=== PATIENT | male | born 1940 | race Caucasian/White ===

== ENCOUNTER 2022-03-02 19:23 | Inpatient (IN) | payer MEDICARE, OTHER ==
[~2022-03-02] VITALS: Ht 180.3 cm; Wt 66.7 kg
--- NOTE | 2022-03-02 21:21 | NUR ---
PT placed in A
[2022-03-02 22:10] LABS: HEMATOCRIT 38.5 % (36.7-47.1); MEAN CORPUSCULAR HEMOGLOBIN 30.2 uug (23.8-33.4); PLATELET COUNT (AUTO) 186 K/uL (152-348)
[2022-03-02 22:27] LABS: CARBON DIOXIDE 33 mmol/L (21-32); CHLORIDE 105 mmol/L (98-107); CREATININE 1.1 mg/dL (0.6-1.3); GLUCOSE 102 mg/dL (74-106); POTASSIUM 3.9 mmol/L (3.5-5.1); UREA NITROGEN, BLOOD 19 mg/dL (7-18)
[2022-03-02 22:33] LABS: ALANINE AMINOTRANSFERASE 42 U/L (16-63); ALKALINE PHOSPHATASE 53 U/L (50-136); ASPARTATE AMINOTRANSFERASE 30 U/L (15-37); BILIRUBIN,DIRECT 0.1 mg/dL (0.0-0.2); BILIRUBIN,TOTAL 0.3 mg/dL (0.2-1.0); CREATINE KINASE, TOTAL 312 U/L (39-308); TOTAL PROTEIN, SERUM 7.2 g/dL (6.4-8.2)
[2022-03-02 22:35] LABS: ACETAMINOPHEN < 2.0 ug/mL (10-30)
[2022-03-02 22:45] LABS: ETHANOL < 3 MG/DL (0-0)
--- NOTE | 2022-03-02 23:17 | NUR ---
called Art marker machine attendant for psych eval
[2022-03-03] MEDS ORDERED: OLANZAPINE 10 MG VIAL IM ONE ×3 (00:14→02:15)
--- NOTE | 2022-03-03 00:20 | NUR ---
5mg Zyprexa IM verbal order received from Dr Smith
--- NOTE | 2022-03-03 01:48 | NUR ---
report given to Lana PISANO
[2022-03-03 01:55] LABS: *BILIRUBIN,URIN NEGATIVE (NEGATIVE); *BLOOD, URINE 3+ (NEGATIVE); *CLARITY,URINE CLOUDY (CLEAR); *COLOR,URINE DARK YELLOW (YELLOW); *KETONES,URINE TRACE (NEGATIVE); *UROBILINOGEN,URINE 0.2 E.U./dl (NORMAL); LEUKOCYTE ESTERASE ,URINE 2+ (NEGATIVE); NITRITE, URINE NEGATIVE (NEGATIVE); UGLUCOSE NEGATIVE (NEGATIVE)
[2022-03-03 02:03] LABS: *AMPHETAMINE, URINE NEGATIVE (NEGATIVE); *CANNABINOID, URINE POSITIVE (NEGATIVE); *COCCAINE, URINE NEGATIVE (NEGATIVE); *OPIATE, URINE NEGATIVE (NEGATIVE); *PHENCYCLIDINE SCREEN,URINE NEGATIVE (NEGATIVE)
--- NOTE | 2022-03-03 02:39 | NUR ---
Pt. admitted to [facility]HU , under care of Dr. Goddard Belongs List completed Nickie RN aware of patient's arrival
[2022-03-03] MEDS ORDERED: BLOOD SUGAR DIAGNOSTIC 1 EACH STRIP VI ONE (03:00)
[2022-03-03] MEDS ORDERED: MAGNESIUM HYDROXIDE 30 ML LIQUID UDC PO PRN (03:00)
[2022-03-03] MEDS ORDERED: ACETAMINOPHEN 325 MG TABLET PO PRN (03:00)
[2022-03-03] MEDS ORDERED: MAG HYDROX/AL HYDROX/SIMETH 30 ML LIQUID UDC PO PRN (03:00)
[2022-03-03] MEDS ORDERED: IPRA3AMP23 IH (04:27)
[2022-03-03] MEDS ORDERED: QUET25TA PO (04:27)
[2022-03-03] MEDS ORDERED: DIVA250T PO (04:27)
[2022-03-03] MEDS ORDERED: AMLO5TAB4 PO (04:27)
[2022-03-03] MEDS ORDERED: CLON0.2T PO (04:27)
[2022-03-03] MEDS ORDERED: RISP2TAB5 PO (04:27)
[2022-03-03] MEDS ORDERED: MEMA10TA PO (04:27)
--- NOTE | 2022-03-03 05:43 | NUR ---
ADMITTING NOTE Patient arrived 2:30 via gurney, brought in by Audrey ANDINO. Placed on a 5150 for Danger to others, and Thought disorder. [facility]'s senior living called for an evaluation for increased agitation, patient according to the hold became combative towards staff and residents. On arrival patient appeared alert, oriented to name only. Patient unable to provide information. Sami speaking primarily, unable to assess, or obtain coherent conversation, or cooperation. Orders received and carried out. Care of Plan in place, will monitor for safety.
[2022-03-03 07:30] VITALS: BP 133/67
--- NOTE | 2022-03-03 09:36 | NUR ---
GPS: PT ON CHAIR FOR SAFETY. CALLED [facility] FOR COVID VACCINE INFORMATION. PT HAVE 2 COVID VACCINES WITH PFIEZER, 1ST- 10/10/20 AND 2ND- 10/31/20. PNA VACCINE - 01/2019 AND FLU VACCINE- 2019.
[2022-03-03] MEDS: DIVALPROEX SPRINKLE 125 MG CAP.SPRINK PO SCH ×2 (09:58→17:14)
--- NOTE | 2022-03-03 10:00 | NUR ---
GPS: RECEIVED PT ON BED ASLEEP. AFTER BREAKFAST, PT WAS TRANSFERRED TO CHAIR FOR SAFETY AFTER PHYSICAL THERAPY EVALUATION. PT UNSTEADY WITH ASSIST ON AMBULATION WITH WALKER. PT COMPLIANT WITH CARE AND MEDS. UNABLE TO MAKE MEANINGFUL CONVERSATION PT SLEEPING, ALERT ONLY TO NAME. DENIES PAIN OR DISCOMFORT. NO AGITATION NOTED AT THIS TIME.
[2022-03-03] MEDS ORDERED: ALBUTEROL SULFATE 8 GM HFA.AER.AD IH PRN (10:15)
[2022-03-03] MEDS ORDERED: ALBUTEROL SULFATE 2.5 MG/3 ML NEBU NEB PRN (10:15)
[2022-03-03] MEDS ORDERED: CLONIDINE HCL 0.2 MG TABLET PO PRN (10:15)
[2022-03-03 10:31] LABS: BILIRUBIN,TOTAL 0.4 mg/dL (0.2-1.0); CREATININE 0.9 mg/dL (0.6-1.3); POTASSIUM 3.3 mmol/L (3.5-5.1); TOTAL PROTEIN, SERUM 6.8 g/dL (6.4-8.2)
[2022-03-03] MEDS ORDERED: POTASSIUM CHLORIDE 10 MEQ TAB.PRT.SR PO ONE (12:00)
[2022-03-03 16:00] VITALS: BP 121/57
[2022-03-03 18:45] LABS: BACTERIA,URINE MODERATE /HPF (NONE SEEN); RBC,URINE TNTC /HPF (0-3); SQUAMOUS EPITHELIAL CELL,UR MODERATE /HPF (NONE SEEN); WBC,URINE TNTC /HPF (0-3)
[2022-03-03 20:41] VITALS: BP 102/63
[2022-03-03] MEDS: MEMANTINE HCL 5 MG TABLET PO SCH (20:42)
[2022-03-03] MEDS: QUETIAPINE FUMARATE 25 MG TABLET PO SCH (20:42)
[2022-03-03] MEDS: ZOLPIDEM 5 MG TABLET PO PRN (20:42)
[2022-03-04] MEDS: LORAZEPAM 0.5 MG TABLET PO PRN ×2 (02:00→20:43)
--- NOTE | 2022-03-04 04:02 | NUR ---
Received patient sitting in [facility] near nurses station for safety. Patient A&0x1, no apparent distress, v/s within normal. Patient is responding to internal stimuli, talking to himself. Reinforce focus on reality. Patient to be calm and quiet during shift. Med compliant. Needs assistance with feeding and care. Snacks provided, with good appetite. Encouraged fluids. Ambien given. Ineffective. Patient remains awake during shift, only got 2.45 hour of sleep. Closely monitoring observed. safety measures in placed.
[2022-03-04 07:30] VITALS: BP 121/50
[2022-03-04] MEDS: DIVALPROEX SPRINKLE 125 MG CAP.SPRINK PO SCH ×2 (11:43→18:04)
[2022-03-04] MEDS: MEMANTINE HCL 5 MG TABLET PO SCH ×2 (11:43→20:43)
[2022-03-04] MEDS: AMLODIPINE 5 MG TABLET PO SCH (11:43)
[2022-03-04 15:33] VITALS: BP 135/49
--- NOTE | 2022-03-04 16:26 | NUR ---
DAI Initial Discharge Note: Pt currently resides at [place] [address] ([phone]). DAI will contact pt's son, Will ([phone]) to gather further information. DAI will continue to work with pt, family and MD to ensure a safe and proper discharge plan.
--- NOTE | 2022-03-04 16:29 | NUR ---
Firearms Report: Cow Tender completed and submitted a [employer] firearms report for 5150 a danger to others and grave disability certifications. A copy of report has been placed in patient chart.
--- NOTE | 2022-03-04 18:19 | NUR ---
GPS: PT STAYED ON BED THE REST OF THE AFTERNOON. QUIET AND CALM. NO AGITATION NOTED. 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 COMPLIANT WITH CARE AND MEDS. WAS ABLE TO EAT INDEPENDENTLY TODAY. ENCOURAGED TO ATTEND GROUP THERAPY BUT REFUSED.
[2022-03-04 19:56] VITALS: BP 158/53
[2022-03-04] MEDS: QUETIAPINE FUMARATE 25 MG TABLET PO SCH (20:43)
[2022-03-05] MEDS: ZOLPIDEM 5 MG TABLET PO PRN (00:12)
[2022-03-05] MEDS: LORAZEPAM 0.5 MG TABLET PO PRN (02:06)
--- NOTE | 2022-03-05 05:56 | NUR ---
This patient was up all night d/t the fact he was allowed to sleep all day. His sleep was 1.15 hours. The patient was restless and confused. Safety Stratiges are in place. Fluids were encouraged.
[2022-03-05 07:55] VITALS: BP 130/62
[2022-03-05] MEDS: DIVALPROEX SPRINKLE 125 MG CAP.SPRINK PO SCH ×2 (09:13→17:20)
[2022-03-05] MEDS: MEMANTINE HCL 5 MG TABLET PO SCH ×2 (09:13→20:45)
[2022-03-05] MEDS: AMLODIPINE 5 MG TABLET PO SCH (09:13)
--- NOTE | 2022-03-05 11:11 | NUR ---
GPS: PT ON CHAIR FOR SAFETY. PT CONFUSED AND DOES NOT MAKE MEANINGFUL CONVERSATION. PT UNABLE TO PARTICIPATE WITH GROUP THERAPY PT WAS ASLEEP. PT ONLY HAD 1.15HRS SLEEP LAST NIGHT. COMPLIANT WITH CARE AND MEDS. NO AGITATION NOTED AT THIS TIME.
[2022-03-05 16:11] VITALS: BP 129/48
[2022-03-05 20:27] VITALS: BP 136/67
--- NOTE | 2022-03-05 20:30 | NUR ---
RECEIVED PATIENT IN HIS ROOM IN BED SLEEPING BUT EASILY AROUSABLE. PATIENT IS CONFUSED, WITH DISORGANIZE SPEECH. AFFECT IS BLUNTED MOOD IS LOW. HE IS UNABLE TO HAVE A MEANINGFUL CONVERSATION WITH THIS DESK DIRECTOR. PATIENT IS IN NO DISTRESS. PATIENT IS REASSURED FOR HER SAFETY. SAFETY AND FALL PRECAUTIONS ARE IN PLACE. V/S STABLE. SHE WAS GIVEN PO FLUIDS AND SNACKS. WILL CONTINUE TO MONITOR.
[2022-03-05] MEDS: QUETIAPINE FUMARATE 25 MG TABLET PO SCH (20:46)
[2022-03-06 07:37] VITALS: BP 132/58
[2022-03-06] MEDS: DIVALPROEX SPRINKLE 125 MG CAP.SPRINK PO SCH ×2 (08:15→16:32)
[2022-03-06] MEDS: MEMANTINE HCL 5 MG TABLET PO SCH ×2 (08:15→20:21)
[2022-03-06] MEDS: AMLODIPINE 5 MG TABLET PO SCH (08:16)
[2022-03-06 15:54] VITALS: BP 138/54
[2022-03-06] MEDS: QUETIAPINE FUMARATE 25 MG TABLET PO SCH (20:21)
[2022-03-06 20:45] VITALS: BP 124/51
[2022-03-06] MEDS: ZOLPIDEM 5 MG TABLET PO PRN (21:53)
[2022-03-06] MEDS: LORAZEPAM 0.5 MG TABLET PO PRN (23:41)
--- NOTE | 2022-03-06 23:49 | NUR ---
GPS: Pt.remains awake at this time on a iesha-chair near nurses station for safety. Confused,disoriented and disorganized. Poor insight to present situation. Restless at times. Ambien 5mg given earlier was ineffective. Ativan 0.5mg given PO. Will monitor effectiveness. Fall precautions observed. No increased agitation noted. Re-directed prn.
[2022-03-07 07:30] VITALS: BP 150/58
[2022-03-07] MEDS: MEMANTINE HCL 5 MG TABLET PO SCH ×2 (08:46→20:33)
[2022-03-07] MEDS: DIVALPROEX SPRINKLE 125 MG CAP.SPRINK PO SCH ×2 (08:46→17:37)
[2022-03-07] MEDS: AMLODIPINE 5 MG TABLET PO SCH (08:47)
[2022-03-07 15:12] VITALS: BP 104/40
[2022-03-07 20:00] VITALS: BP 130/63
--- NOTE | 2022-03-07 20:30 | NUR ---
RECEIVED CARE OF PATIENT. HE IS PRESENTLY SITTING IN A [place] CHAIR NEAR THE NURSING STATION FOR SAFETY. HE IS NOTED A/O X 1 HE IS CALM AND PLEASANT UPON APPROACHED. HE IS BREATHING EVEN, NON LABORED AND NO SIGNS OF PAIN OR DISCOMFORT. PATIENT IS A YI SPEAKER THIS RESEARCH AND EVALUATION ANALYST IS ABLE TO SPEAK AND UNDERSTAND YI. HE IS CONFUSED, PATIENT IS TANGENTAL AND HE IS UNABLE TO HAVE A MEANINGFUL CONVERSATION WITH THIS RESEARCH AND EVALUATION ANALYST. PATIENT IS REASSURED FOR HIS SAFETY. SAFETY AND FALL PRECAUTIONS ARE IN PLACE. V/S ARE STABLE. PT IN NO DISTRESS. PO FLUIDS AND SNACKS WERE GIVEN TO PATIENT. WILL CONTINUE TO MONITOR.
[2022-03-07] MEDS: QUETIAPINE FUMARATE 25 MG TABLET PO SCH (20:33)
--- NOTE | 2022-03-08 07:00 | NUR ---
patient slept for approx 7.30 hrs through the night. he continue calm and cooperative. he is only alert to his name. he needs assistance with ADLs. he is unsteady. continue with safety and fall precaution. bed alarm on and frequent head checks.
[2022-03-08 07:40] VITALS: BP 137/56
[2022-03-08] MEDS: DIVALPROEX SPRINKLE 125 MG CAP.SPRINK PO SCH ×3 (09:14→17:36)
[2022-03-08] MEDS: MEMANTINE HCL 5 MG TABLET PO SCH ×2 (09:14→20:20)
[2022-03-08] MEDS: AMLODIPINE 5 MG TABLET PO SCH (09:14)
--- NOTE | 2022-03-08 10:08 | NUR ---
Social Work Coordination of Care: It Manager faxed patient's referral packet including: History and Physical, Consultation, Progress Notes, Medication List and Labs to the following facilities for review and possible senior care placement: Via [facility] locked unit ([phone]) located at [phone] [facility] [address] and spoke with Farzaneh in admissions. Awaiting response from facility.
[2022-03-08] MEDS: LORAZEPAM 0.5 MG TABLET PO PRN (12:34)
[2022-03-08 16:14] VITALS: BP 137/56
--- NOTE | 2022-03-08 16:49 | NUR ---
Received patient is confused and disoriented unable to follow directions , get patient up to iesha-chair next to nurse station for safety monitor . restless at time with poor insight and poor judgement .compliant with all po medication will continue close monitoring,
[2022-03-08 19:53] VITALS: BP 132/55
[2022-03-08] MEDS: QUETIAPINE FUMARATE 25 MG TABLET PO SCH (20:20)
[2022-03-08] MEDS: ZOLPIDEM 5 MG TABLET PO PRN (21:53)
[2022-03-09] MEDS: LORAZEPAM 0.5 MG TABLET PO PRN (00:18)
[2022-03-09 07:30] VITALS: BP 106/52
[2022-03-09] MEDS: DIVALPROEX SPRINKLE 125 MG CAP.SPRINK PO SCH ×3 (08:29→17:52)
[2022-03-09] MEDS: MEMANTINE HCL 5 MG TABLET PO SCH ×2 (08:29→20:08)
[2022-03-09] MEDS: AMLODIPINE 5 MG TABLET PO SCH (08:29)
--- NOTE | 2022-03-09 09:13 | NUR ---
GPS: PT ON CHAIR FOR SAFETY. NO AGITATION NOTED AT THIS TIME. COMPLIANT WITH CARE AND MEDICATIONS. PT WITH EPISODE OF CONFUSION AT TIMES, POOR JUDGMENT AND IMPULSE CONTROL. DENIES PAIN OR DISCOMFORT. ABLE TO EAT FOOD INDEPENDENTLY.
[2022-03-09] MEDS: ENSURE ENLIVE (VAN) 240 ML LIQUID PO SCH ×2 (10:30→17:40)
--- NOTE | 2022-03-09 10:30 | NUR ---
GPS: PT 14D [facility] DONE WITH GRAVE DISABILITY ONLY PROBABLE CAUSE. PT DID NOT PARTICIPATE THE HEARING.
[2022-03-09 15:33] VITALS: BP 106/49
--- NOTE | 2022-03-09 17:52 | NUR ---
GPS: PT DIVALPROEX WAS GIVEN AT 1330 BUT WAS A LATE ENTRY.
--- NOTE | 2022-03-09 18:26 | NUR ---
GPS: PT WITH NO EPISODE OF AGITATION TODAY. PT IS QUIET, WITHDRAWN, WITH MINIMAL PARTICIPATION WITH GROUP THERAPY DUE TO PT SLEEPY ON CHAIR. PT WITH FAIR APPETITE. COMPLIANT WITH CARE AND MEDS.
[2022-03-09] MEDS: QUETIAPINE FUMARATE 100 MG TABLET PO SCH (20:08)
[2022-03-09 20:10] VITALS: BP 137/62
[2022-03-09] MEDS: ZOLPIDEM 5 MG TABLET PO PRN (22:33)
[2022-03-10 07:30] VITALS: BP 141/57
[2022-03-10] MEDS: AMLODIPINE 2.5 MG TABLET PO SCH (08:22)
[2022-03-10] MEDS: MEMANTINE HCL 5 MG TABLET PO SCH ×2 (08:22→21:36)
[2022-03-10] MEDS: ENSURE ENLIVE (VAN) 240 ML LIQUID PO SCH ×2 (08:22→17:45)
[2022-03-10] MEDS: DIVALPROEX SPRINKLE 125 MG CAP.SPRINK PO SCH ×3 (08:22→17:45)
--- NOTE | 2022-03-10 09:49 | NUR ---
GPS: PT ON CHAIR FOR SAFETY. AWAKE AND FINISHED THE BREAKFAST. PARTICIPATED WITH GROUP THERAPY. NO ANXIETY NOTED. COOPERATIVE WITH CARE AND COMPLIANT WITH MEDS. NO AGITATION NOTED. POOR IMPULSE CONTROL AND JUDGMENT.
--- NOTE | 2022-03-10 11:36 | NUR ---
DAI Family Contact: DAI spoke with pt's daughter in law, Lizz ([phone]) who stated to DAI that she is agreeable with [facility] as a referral for pt's discharge plan as she wanted pt to be close to family. DAI stated that this facility is within the area of Lizz's request. DAI stated she will confirm with Lizz after DAI receives an update. Ann is agreeable.
[2022-03-10 16:00] VITALS: BP 128/54
--- NOTE | 2022-03-10 18:14 | NUR ---
GPS: PT RESISTIVE WITH CARE SPECIALLY WHEN ASSISTING WITH TOILETING. PT UNABLE TO MAKE NEEDS KNOWN. NO AGITATION NOTED AT THIS TIME.
[2022-03-10 20:00] VITALS: BP 113/61
[2022-03-10] MEDS: LORAZEPAM 0.5 MG TABLET PO PRN (21:27)
[2022-03-10] MEDS: QUETIAPINE FUMARATE 100 MG TABLET PO SCH (22:43)
[2022-03-10] MEDS: MELATONIN 3 MG TABLET PO SCH (22:44)
--- NOTE | 2022-03-11 04:59 | NUR ---
Received to care, up in iesha chair, talking to self. PO fluids and bedtime snack given. Compliant with medications. Ativan given at bedtime. He was assisted to bed without any problem, and has been asleep, ever since. No distress noted. Will continue to monitor closely.
--- NOTE | 2022-03-11 06:49 | NUR ---
Slept 7.75 hours.
[2022-03-11 07:30] VITALS: BP 147/64
[2022-03-11] MEDS: DIVALPROEX SPRINKLE 125 MG CAP.SPRINK PO SCH ×3 (09:09→18:08)
[2022-03-11] MEDS: ENSURE ENLIVE (VAN) 240 ML LIQUID PO SCH ×2 (09:09→18:08)
[2022-03-11] MEDS: MEMANTINE HCL 5 MG TABLET PO SCH ×2 (09:09→21:40)
[2022-03-11] MEDS: AMLODIPINE 2.5 MG TABLET PO SCH (09:10)
--- NOTE | 2022-03-11 10:01 | NUR ---
SNF Referral: SW faxed patient's referral packet including: History and Physical, Consultation, Progress Notes, Medication List and Labs to the following facilities for review and possible [facility]cf[facility] placement: [facility] [place] [address] ([phone]) and spoke with Tom in admissions.
--- NOTE | 2022-03-11 11:27 | NUR ---
GPS: PT RECEIVED ON BED WITH EPISODE OF RESISTIVE WITH CARE. COMPLIANT WITH MEDS. SEEN BY PSYCHIATRIST TODAY. NO AGITATION NOTED. PT REMAINS CONFUSED, FLAT AND BLUNTED AFFECT.
[2022-03-11 15:08] VITALS: BP 128/52
--- NOTE | 2022-03-11 15:22 | NUR ---
SW Discharge Update: DAI spoke with Tom fritz who at [address] [address] ([phone]) who stated that admissions confirmed pt is accepted to their facility upon discharge.
[2022-03-11 20:00] VITALS: BP 120/40
[2022-03-11] MEDS: MELATONIN 3 MG TABLET PO SCH (21:40)
[2022-03-11] MEDS: QUETIAPINE FUMARATE 100 MG TABLET PO SCH (21:40)
[2022-03-11] MEDS: LORAZEPAM 0.5 MG TABLET PO PRN (22:49)
--- NOTE | 2022-03-12 06:00 | NUR ---
Received to care, up in iesha chair, talking to self. Compliant with medications, and PO intake, with minimal encouragement. Ativan given at 2249. He was then assisted to bed, and given PM care, without any problems, and has been asleep, ever since. No distress noted. Will continue to monitor closely.
[2022-03-12 07:30] VITALS: BP 122/50
[2022-03-12 08:13] LABS: CREATININE 0.9 mg/dL (0.6-1.3); POTASSIUM 3.7 mmol/L (3.5-5.1)
[2022-03-12] MEDS: LORAZEPAM 0.5 MG TABLET PO PRN (08:42)
[2022-03-12] MEDS: MEMANTINE HCL 5 MG TABLET PO SCH ×2 (08:42→20:42)
[2022-03-12] MEDS: AMLODIPINE 2.5 MG TABLET PO SCH (08:43)
[2022-03-12] MEDS: DIVALPROEX SPRINKLE 125 MG CAP.SPRINK PO SCH ×3 (08:43→17:16)
[2022-03-12] MEDS: ENSURE ENLIVE (VAN) 240 ML LIQUID PO SCH ×2 (08:49→17:17)
--- NOTE | 2022-03-12 10:36 | NUR ---
DAI Family Contact: SW spoke with pt's daughter in law, Lizz ([phone]) and discussed pt's acceptance to [facility] located at [address] [place] [address] ([phone]) upon discharge on Tuesday. Lizz is aware and agreeable with the discharge plan.
[2022-03-12 16:30] VITALS: BP 123/49
--- NOTE | 2022-03-12 18:49 | NUR ---
patient up in chair has ambulated [facility] Pt , assisted with meal, had moderate bm and voiding. affect blunt mood easily agitated continue to monitor for safety.
[2022-03-12 20:07] VITALS: BP 159/69
[2022-03-12] MEDS: MELATONIN 3 MG TABLET PO SCH (20:42)
[2022-03-12] MEDS: QUETIAPINE FUMARATE 100 MG TABLET PO SCH (20:42)
[2022-03-13] MEDS: ENSURE ENLIVE (VAN) 240 ML LIQUID PO SCH ×2 (08:00→17:52)
[2022-03-13] MEDS: DIVALPROEX SPRINKLE 125 MG CAP.SPRINK PO SCH ×3 (08:51→17:52)
[2022-03-13] MEDS: MEMANTINE HCL 5 MG TABLET PO SCH ×2 (08:51→20:24)
[2022-03-13] MEDS: AMLODIPINE 2.5 MG TABLET PO SCH (08:51)
[2022-03-13 09:24] VITALS: BP 178/68
[2022-03-13 16:03] VITALS: BP 137/43
[2022-03-13 20:05] VITALS: BP 155/60
[2022-03-13] MEDS: QUETIAPINE FUMARATE 100 MG TABLET PO SCH (20:25)
[2022-03-13] MEDS: MELATONIN 3 MG TABLET PO SCH (20:25)
--- NOTE | 2022-03-14 03:46 | NUR ---
Patient alert but forgetful, no s/s of pain or discomfort, requires total assist with adl's, patient cooperative with medications and care, patient calm, no agitation noted, stayed in bed most of the night, kept clean and dry
[2022-03-14 07:46] VITALS: BP 125/62
[2022-03-14] MEDS: MEMANTINE HCL 5 MG TABLET PO SCH ×2 (08:33→20:28)
[2022-03-14] MEDS: DIVALPROEX SPRINKLE 125 MG CAP.SPRINK PO SCH ×3 (08:33→17:35)
[2022-03-14] MEDS: ENSURE ENLIVE (VAN) 240 ML LIQUID PO SCH ×2 (08:34→17:35)
[2022-03-14] MEDS: AMLODIPINE 2.5 MG TABLET PO SCH (08:34)
[2022-03-14 15:57] VITALS: BP 129/53
--- NOTE | 2022-03-14 16:55 | NUR ---
Gps/Cargo Vessel Stewardess-Assisted patient back to bed, had been up in his iesha-chair since before lunch time. Attended his am group therapy .Assisted with his meals, no initiation noted. Confused, poor safety awareness, Interacts with the staff, speech incoherent confused. needed prompting. Fluids offered, encouraged. safety emphasized, monitoring needs.
[2022-03-14 19:45] VITALS: BP 126/77
[2022-03-14] MEDS: QUETIAPINE FUMARATE 100 MG TABLET PO SCH (20:28)
[2022-03-14] MEDS: LORAZEPAM 0.5 MG TABLET PO PRN (20:28)
[2022-03-14] MEDS: MELATONIN 3 MG TABLET PO SCH (20:28)
[2022-03-15] MEDS: LORAZEPAM 0.5 MG TABLET PO PRN (01:13)
[2022-03-15 08:02] VITALS: BP 95/46
[2022-03-15] MEDS: MEMANTINE HCL 5 MG TABLET PO SCH ×2 (08:49→21:23)
[2022-03-15] MEDS: AMLODIPINE 2.5 MG TABLET PO SCH (08:49)
[2022-03-15] MEDS: DIVALPROEX SPRINKLE 125 MG CAP.SPRINK PO SCH ×3 (08:50→17:28)
[2022-03-15] MEDS: ENSURE ENLIVE (VAN) 240 ML LIQUID PO SCH ×2 (08:50→17:29)
--- NOTE | 2022-03-15 11:34 | NUR ---
DAI Discharge Update: DAI spoke with Tom at [facility] located at [address] [place] [phone] ([phone]) on 03/16/22 regarding pt's discharge details on 03/16/22. Facility is aware and agreeable.
--- NOTE | 2022-03-15 14:46 | NUR ---
Received patient sleeping in her room. A/O X 1 to person. Pt. is quiet, withdrawn, forgetful, confused, disoriented. Patient is compliant with medications. Reassurance given. Fall and safety precautions implemented.
[2022-03-15 16:02] VITALS: BP 121/44
--- NOTE | 2022-03-15 16:07 | NUR ---
DAI Family Contact: SW spoke with pt's daughter in law, Lizz ([phone]) and discussed pt's discharge to [facility] located at [address] [place] [address] ([phone]) on 03/16/22. Lizz is aware and agreeable with the discharge plan.
[2022-03-15 19:40] VITALS: BP 118/44
[2022-03-15] MEDS: QUETIAPINE FUMARATE 100 MG TABLET PO SCH (21:23)
[2022-03-15] MEDS: MELATONIN 3 MG TABLET PO SCH (21:23)
[2022-03-16 07:44] VITALS: BP 108/48
--- NOTE | 2022-03-16 08:29 | NUR ---
Discharge Note: Pt will be discharged to [facility] located at [address] [place] [address] ([phone]) via Ambulance transportation at 11AM. Pt is aware and agreeable with discharge plans. Pt is alert and oriented x1, is unable to plan for self-care at this time; however, is willing to accept care at SNF. Pts [id number], Lizz ([phone]) is aware and agreeable with the discharge plan. Pt does not have a DPOA or conservator. Lizz is involved in pts care. Pt denies any suicidal or homicidal ideation. Pt will follow-up at the facility with Psychiatrist, Dr. Merchant and Employment Clerk, Dr. Redding. Pt presents with calm mood and congruent affect. [facility] ([phone]) [phone]) [address] [facility] [address].
[2022-03-16] MEDS: MEMANTINE HCL 5 MG TABLET PO SCH (08:50)
[2022-03-16] MEDS: DIVALPROEX SPRINKLE 125 MG CAP.SPRINK PO SCH (08:50)
[2022-03-16 08:51] VITALS: BP 108/48
[2022-03-16] MEDS: ENSURE ENLIVE (VAN) 240 ML LIQUID PO SCH (08:51)
[2022-03-16] MEDS: AMLODIPINE 2.5 MG TABLET PO SCH (08:51)
--- NOTE | 2022-03-16 10:44 | NUR ---
GPS: PT ON CHAIR FOR SAFETY. ABLE TO CONSUME BREAKFAST WITH LITTLE ASSISTANCE. PT WILL BE DISCHARGE TODAY TO [facility] VIA AMBULANCE TODAY AT 11AM. CALLED AMBULANCE FOR TRANSFER. PT COMPLIANT WITH CARE AND MEDS. NO AGITATION NOTED. DENIES PAIN OR DISCOMFORT. REPORT GIVEN TO CLAIRE AT [facility].
--- NOTE | 2022-03-16 11:12 | NUR ---
GPS: PT DISCHARGE FROM FACILITY, PSYCHIATRIST AND CLOTH TESTER QUALITY SEEN PT AND AWARE OF DISCHARGE. NO AGITATION DURING TRANSFER FROM BED TO [facility]. ALL BELONGINGS GIVEN AND ACCOUNTED FOR.
== END 2022-03-16 11:31 | DRG 885 ==
LOC: ER 19:31 → GPS 03-03 02:13
PROVIDERS: ADMIT Psychiatry & Neurology Psychiatry; ATTEND Nurse Practitioner Acute Care
DX: F29 Unspecified psychosis not due to a substance or known physiological condition (principal); F03.91 Unspecified dementia, unspecified severity, with behavioral disturbance; E11.9 Type 2 diabetes mellitus without complications; E87.6 Hypokalemia; I10 Essential (primary) hypertension; J44.9 Chronic obstructive pulmonary disease, unspecified; F39 Unspecified mood [affective] disorder; Z73.6 Limitation of activities due to disability; F25.0 Schizoaffective disorder, bipolar type; Z20.822 Contact with and (suspected) exposure to COVID-19
CPT/HCPCS: 36415; 80164; 85025; 87086; 97161; A4663; G0480; J2358